=== PATIENT | female | born 1985 | race Caucasian/White ===

== ENCOUNTER 2022-06-16 08:59 | Outpatient (CLI) | payer SELFPAY ==
--- NOTE | 2022-06-16 09:15 | CRLHL7_ITS ---
For Patients: As a result of the Cures Act, medical imaging exams and procedure reports are released immediately into your electronic medical record. You may view this report before your referring provider. If you have questions, please contact your health care provider. INDICATION: First trimester scan, establish dates. TECHNIQUE: Real-time flynn-scale imaging of the pelvis was performed. FINDINGS: Sonographic imaging demonstrates a single living intrauterine gestation. The embryo demonstrates a regular cardiac rate measuring 176 beats per minute. The embryo`s crown-rump length measurement of 3.1 cm corresponds to a gestational age of 10 weeks 0 days with a sonographic due date of 01/12/2023 . Corpus lutein cyst right ovary. Ovaries are unremarkable. IMPRESSION: Normal first trimester OB ultrasound exam. Gestational age calculated at 10 weeks 0 days with a sonographic due date of 01/12/2023. Dictated by Nicole Gallagher MD @ 06/16/2022 11:07:32 AM (Electronically Signed)
== END 2022-06-16 09:00 | disposition home or self-care (01) ==
LOC: US 09:00
PROVIDERS: Visit Provider Advanced Practice Midwife
DX: Z34.91 Encounter for supervision of normal pregnancy, unspecified, first trimester (principal); Z3A.10 10 weeks gestation of pregnancy
CPT/HCPCS: 76801

== ENCOUNTER 2022-06-16 10:18 | Outpatient (CLI) | payer SELFPAY ==
[2022-06-16 14:24] LABS: Hepatitis B Surface Antigen* Negative (Negative)
[2022-06-16 14:28] LABS: HIV 1/2/P24 Combo Screen* Negative (Negative)
[2022-06-16 14:41] LABS: Hepatitis C Virus Antibody* Negative (Negative)
[2022-06-18 06:27] LABS: Rubella Antibody IgG 27.8 IU/mL
[2022-06-18 06:34] LABS: Rapid Plasma Reagin (RPR) Non Reactive (Non Reactive)
== END 2022-06-16 10:19 | disposition home or self-care (01) ==
PROVIDERS: Visit Provider Advanced Practice Midwife
DX: Z34.81 Encounter for supervision of other normal pregnancy, first trimester (principal); Z3A.10 10 weeks gestation of pregnancy
CPT/HCPCS: 86592; 86703; 86762; 86787; 86803; 86850; 86900; 86901; 87086; 87340

== ENCOUNTER 2022-08-27 13:11 | Outpatient (CLI) | payer MEDICAID, SELFPAY | END 2022-08-27 13:12 | disposition home or self-care (01) | LOC: US 13:14 | PROVIDERS: Visit Provider Pediatrics Neonatal-Perinatal Medicine | DX: O09.529 Supervision of elderly multigravida, unspecified trimester (principal); Z3A.20 20 weeks gestation of pregnancy | CPT/HCPCS: 76811 ==

== ENCOUNTER 2022-10-27 09:16 | Outpatient (CLI) | payer OTHER, SELFPAY | END 2022-10-27 09:17 | disposition home or self-care (01) | LOC: NFLDREF 09:18 | PROVIDERS: Visit Provider Advanced Practice Midwife | DX: Z34.93 Encounter for supervision of normal pregnancy, unspecified, third trimester (principal); Z3A.29 29 weeks gestation of pregnancy | CPT/HCPCS: 86592 ==

== ENCOUNTER 2022-10-31 07:49 | Outpatient (CLI) | payer OTHER, SELFPAY | END 2022-10-31 07:50 | disposition home or self-care (01) | LOC: NFLDREF 11-01 07:01 | PROVIDERS: Visit Provider Advanced Practice Midwife | DX: Z34.93 Encounter for supervision of normal pregnancy, unspecified, third trimester (principal) | CPT/HCPCS: 82951; 82952 ==

== ENCOUNTER 2025-01-04 13:41 | Outpatient (CLI) | payer OTHER, SELFPAY ==
--- NOTE | 2025-01-04 14:00 | CRLHL7_ITS ---
For Patients: As a result of the Century Cures Act, medical imaging exams and procedure reports are released immediately into your electronic medical record. You may view this report before your referring provider. If you have questions, please contact your health care provider. OBSTETRICAL ULTRASOUND TRANSABDOMINAL ??? FIRST TRIMESTER, 01/04/2025 CLINICAL INDICATION: Dating and viability. LMP: 10/08/2024 TANYA by LMP: 07/15/2025 Gestational age: 12 weeks 4 days Previous ultrasound: No TECHNIQUE: Real-time flynn-scale imaging of the fetus was performed transabdominal. FINDINGS: CRL: 5.8 cm, 12 weeks 2 days; TANYA 07/17/2025 heart rate: 167 BPM Gestational sac: 5.2 cm, appears within normal limits Yolk sac: Not visualized Right ovary: Within normal limits; 5.4 x 3.4 x 3.7 cm, CL Left ovary: Within normal limits; 2.8 x 2.6 x 4.3 cm IMPRESSION: 1. Single living intrauterine with sonographic gestational age of 12 weeks 2 days and sonographic due date of 07/17/2025. 2. Subchorionic hemorrhage measures 2.8 x 1.0 x 2.2 cm. JAMES MALLOY M.D. Diagnostic Radiologist [email or web address] Transcribed: 5:[address]/Dictated by: James Malloy MD @ 01/04/2025 4:04:00 PM (Electronically Signed)
== END 2025-01-04 13:42 | disposition home or self-care (01) ==
LOC: US 13:41
PROVIDERS: PCP Nurse Practitioner Family; Visit Provider Advanced Practice Midwife
DX: Z34.91 Encounter for supervision of normal pregnancy, unspecified, first trimester (principal); O20.9 Hemorrhage in early pregnancy, unspecified; Z3A.12 12 weeks gestation of pregnancy
CPT/HCPCS: 76801

== ENCOUNTER 2025-01-04 14:58 | Outpatient (CLI) | payer OTHER, SELFPAY ==
--- NOTE | 2025-01-16 14:31 | PC.SOCIAL ---
Addendum entered and electronically signed by Marily Cook LCSW 01/16/25 15:03: SW received call from patient who states that she didn't qualify for MNSure and was not concerned at this time as she was private pay for her son and was not concerned with the bills at that time. Patient had no other questions or concerns at this time. Original Note: [employer]acker Consult: SW was contacted by Jo Ann in [facility] about this patient who does not have insurance and patient called and states that she didn't qualify for insurance through the [facility]. SW states she will reach out to patient to discuss other potential options. DOMENICA called patient and left generic voicemail requesting a call back.
== END 2025-01-04 14:59 | disposition home or self-care (01) ==
PROVIDERS: PCP Nurse Practitioner Family; Visit Provider Advanced Practice Midwife
DX: Z34.81 Encounter for supervision of other normal pregnancy, first trimester (principal)
CPT/HCPCS: 83020; 83021; 85660; 86592; 86703; 86704; 86706; 86762; 86787; 86803; 87086; 87340

== ENCOUNTER 2025-02-01 14:08 | Outpatient (CLI) | payer OTHER, SELFPAY | END 2025-02-01 14:09 | disposition home or self-care (01) | PROVIDERS: PCP Nurse Practitioner Family; Visit Provider Advanced Practice Midwife | DX: O09.522 Supervision of elderly multigravida, second trimester (principal); Z3A.16 16 weeks gestation of pregnancy | CPT/HCPCS: 82565; 82570; 84156; 84450; 84460; 84520 ==

== ENCOUNTER 2025-02-22 10:35 | Outpatient (CLI) | payer SELFPAY | END 2025-02-22 10:36 | disposition home or self-care (01) | LOC: US 10:36 | PROVIDERS: PCP Nurse Practitioner Family; Visit Provider Advanced Practice Midwife | DX: O09.522 Supervision of elderly multigravida, second trimester (principal); Z3A.19 19 weeks gestation of pregnancy | CPT/HCPCS: 76811; 76817 ==

== ENCOUNTER 2025-02-28 12:37 | Outpatient (CLI) | payer SELFPAY | END 2025-02-28 12:38 | disposition home or self-care (01) | LOC: NFLDREF 03-02 02:31 | PROVIDERS: PCP Nurse Practitioner Family; Referring Provider Nurse Practitioner Family; Visit Provider Advanced Practice Midwife | DX: O09.522 Supervision of elderly multigravida, second trimester (principal); Z3A.20 20 weeks gestation of pregnancy | CPT/HCPCS: 82570; 84156 ==

== ENCOUNTER 2025-03-15 10:30 | Outpatient (CLI) | payer OTHER, SELFPAY | END 2025-03-15 10:31 | disposition home or self-care (01) | LOC: US 10:32 | PROVIDERS: PCP Nurse Practitioner Family; Visit Provider Advanced Practice Midwife | DX: Z36.2 Encounter for other antenatal screening follow-up (principal); O44.42 Low lying placenta NOS or without hemorrhage, second trimester; O09.522 Supervision of elderly multigravida, second trimester; Z3A.22 22 weeks gestation of pregnancy | CPT/HCPCS: 76816; 76817 ==

== ENCOUNTER 2025-04-25 14:16 | Outpatient (CLI) | payer SELFPAY ==
--- NOTE | 2025-04-25 14:45 | CRLHL7_ITS ---
For Patients: As a result of the Century Cures Act, medical imaging exams and procedure reports are released immediately into your electronic medical record. You may view this report before your referring provider. If you have questions, please contact your health care provider. OB ULTRASOUND FOLLOW-UP, 04/25/2025 CLINICAL HISTORY: Obesity, low-lying placenta. TECHNIQUE: Real time flynn scale imaging of the fetus was performed. Transabdominal imaging performed. COMPARISON: 01/04/2025. FINDINGS: LMP: 10/08/2024. TANYA by LMP: 07/15/2025. GA: 28 weeks 3 days. Gestation: Single. Cervix: Not visualized. Positioning: Breech, transverse, multiple. Amniotic Fluid: 7.3 cm SDP. Dopplers: Heart Rate: 157 bpm. BIOMETRY BPD: 7.0 cm, 28 weeks 0 days. 23% HC: 26.3 cm, 28 weeks 4 days. 23% AC: 24.2 cm, 28 weeks 3 days. 43% FL: 5.1 cm, 27 weeks 3 days. 13% FL/AC Ratio: 21.27% HC/AC Ratio: 1.09. EFW: 1174 grams, 2 lb 9 oz. Age by this US: 28 weeks 1 day. TANYA by this US: 07/17/2025. Percentile by TANYA: 25% IMPRESSION: 1. Sonographic gestational age 28 weeks 1 day and sonographic due date 07/17/2025. Good correlation with dates. Normal interval growth. 2. Estimated weight 25th percentile. Abdominal circumference 43rd percentile. 3. The anterior placental edge is located 2.4 cm from the internal cervical os. James Crum M.D. Diagnostic Radiologist [email or web address] Transcribed: 9:09 am DW/Dictated by: James Crum MD @ 04/26/2025 7:46:00 AM (Electronically Signed)
== END 2025-04-25 14:17 | disposition home or self-care (01) ==
LOC: US 14:17
PROVIDERS: PCP Nurse Practitioner Family; Visit Provider Advanced Practice Midwife
DX: O44.43 Low lying placenta NOS or without hemorrhage, third trimester (principal); O99.213 Obesity complicating pregnancy, third trimester; Z3A.28 28 weeks gestation of pregnancy
CPT/HCPCS: 76816

== ENCOUNTER 2025-04-28 08:07 | Outpatient (CLI) | payer OTHER, SELFPAY | END 2025-04-28 08:08 | disposition home or self-care (01) | LOC: NFLDREF 05-07 05:49 | PROVIDERS: PCP Nurse Practitioner Family; Referring Provider Nurse Practitioner Family; Visit Provider Advanced Practice Midwife | DX: R73.09 Other abnormal glucose (principal); Z34.93 Encounter for supervision of normal pregnancy, unspecified, third trimester | CPT/HCPCS: 82951; 82952 ==

== ENCOUNTER 2025-05-23 11:15 | Outpatient (CLI) | payer OTHER, SELFPAY ==
--- NOTE | 2025-05-23 11:30 | CRLHL7_ITS ---
For Patients: As a result of the Cures Act, medical imaging exams and procedure reports are released immediately into your electronic medical record. You may view this report before your referring provider. If you have questions, please contact your health care provider. OB ULTRASOUND BIOPHYSICAL PROFILE CLINICAL HISTORY: Gestational diabetes mellitus. TECHNIQUE: Real time flynn scale imaging of the fetus was performed. Transabdominal imaging performed. COMPARISON: 04/25/2025. FINDINGS: LMP: 10/08/2024. TANYA by LMP: 07/15/2025. Gestation: Single. Surgery: None. Cervix: Not visualized. Positioning: Transverse. Amniotic Fluid: 6.7 cm SDP. BIOPHYSICAL PROFILE Gross Body Movements: 2 Tone: 2 Respiratory Activity: 2 Amniotic Fluid SDP: 2 Total Score: 8 Placenta: Technique: TA. Placenta Position: Anterior. Dopplers: Heart Rate: 129 bpm. IMPRESSION: Normal biophysical profile score of 8/8. James Crum M.D. Diagnostic Radiologist [email or web address] Transcribed: 2:34 pm DW/Dictated by: James Crum MD @ 05/23/2025 2:06:00 PM (Electronically Signed)
== END 2025-05-23 11:16 | disposition home or self-care (01) ==
LOC: US 11:16
PROVIDERS: PCP Nurse Practitioner Family; Visit Provider Obstetrics & Gynecology
DX: O24.419 Gestational diabetes mellitus in pregnancy, unspecified control (principal)
CPT/HCPCS: 76819

== ENCOUNTER 2025-05-26 07:57 | Outpatient (CLI) | payer OTHER, SELFPAY ==
--- NOTE | 2025-05-26 08:15 | CRLHL7_ITS ---
For Patients: As a result of the Cures Act, medical imaging exams and procedure reports are released immediately into your electronic medical record. You may view this report before your referring provider. If you have questions, please contact your health care provider. OB ULTRASOUND TANYA by LMP: 07/15/2025. GA: 32 w, 6 d. Single. Comparison: 05/23/2025, 04/25/2025, 03/15/2025. INDICATION: Gestational diabetes mellitus type 2 and advanced maternal age. TECHNIQUE: Real time grayscale imaging of the fetus was performed. Transabdominal. CERVIX: Visualized. TA Measurement: 4.7 cm. POSITIONING: Breech, oblique. AMNIOTIC FLUID: 5.5 cm. SDP (N: greater than 2 x 1 cm) BIOPHYSICAL PROFILE: 2: Gross body movements 2: tone 2: Respiratory activity 2: Amniotic fluid SDP (N: greater than 2 x 1 cm) 03/17: Total score PLACENTA: Technique: Transabdominal. PLACENTA POSITION: Anterior. DOPPLER: heart rate: 139 bpm. BIOMETRY: BPD: 8.1 cm. 32 w, 4 d, 33.5%. HC: 30.4 cm. 33 w, 5 d, 35.6%. AC: 28.4 cm. 32 w, 3 d, 38.4%. FL: 5.8 cm. 30 w, 2 d, <3%. FL/AC ratio: 20.40%. HC/AC ratio: 1.07. EFW: 1873g. Weight: 4 lbs., 2 oz. age by this US: 32 w, 2 d. TANYA by this US: 07/19/2025. Percentile by TANYA: 17.0%. IMPRESSION: 1. Sonographic gestational age 32 weeks 2 days and sonographic due date 07/19/2025. Good correlation with dates. Normal interval growth. 2. Estimated weight 17th percentile. Abdominal circumference 38th percentile. Femur length less than 3rd percentile. 3. Normal biophysical profile score 03/17. James Crum M.D. Diagnostic Radiologist [email or web address] PAMELA/faustina weems/Dictated by: James Crum MD @ 05/28/2025 10:40:00 PM (Electronically Signed)
== END 2025-05-26 07:58 | disposition home or self-care (01) ==
LOC: US 07:57
PROVIDERS: PCP Nurse Practitioner Family; Visit Provider Advanced Practice Midwife
DX: O24.419 Gestational diabetes mellitus in pregnancy, unspecified control (principal); O09.523 Supervision of elderly multigravida, third trimester; Z3A.32 32 weeks gestation of pregnancy
CPT/HCPCS: 76816; 76819

== ENCOUNTER 2025-05-28 17:39 | Outpatient (CLI) | payer OTHER, SELFPAY ==
[2025-05-28 17:49] VITALS: PULSE 87; O2SAT 97
[2025-05-28 18:08] VITALS: RESP 18; TEMP 36.7
[2025-05-28 18:09] VITALS: BP 106/56; PULSE 86
--- NOTE | 2025-05-28 19:22 | PC.OBNST ---
NST Note NST Note Start: 05/28/25 17:42 Freq: ONCE Status: Active Protocol: Document 05/28/25 19:21 JODEE (Rec: 05/28/25 19:22 [facility] [id number]) NST Note 7 Para (# of births) 2 EDC 07/15/25 Gestational Age In 33 Weeks & 1 Days Weeks & Days High Risk Factors Diabetes - Gestational Insulin,Advanced Maternal Age Patient Presented Decreased movement with Complaint(s) of Reactive Yes Appropriate for Yes Gestational Age ZENOBIA Hirsch Date 05/28/25 Reactive Yes Appropriate for Yes Gestational Age ZENOBIA Chandler Date 05/28/25 OB NST charge Yes Complete NST Note Yes via Write Note The provider's electronic signature indicates the NST is reactive/appropriate for gestational age. *Note to provider: If an addendum is required, open the patient's chart and click on the note under the Nurse/Allied Health tab.
== END 2025-05-28 18:58 | disposition home or self-care (01) ==
LOC: OB OUT 17:43 → OB 17:43
PROVIDERS: PCP Nurse Practitioner Family; Visit Provider Obstetrics & Gynecology
DX: O36.8130 Decreased fetal movements, third trimester, not applicable or unspecified (principal); O24.419 Gestational diabetes mellitus in pregnancy, unspecified control; Z3A.33 33 weeks gestation of pregnancy
CPT/HCPCS: 59025; G0463

== ENCOUNTER 2025-06-02 11:46 | Outpatient (CLI) | payer OTHER, SELFPAY ==
--- NOTE | 2025-06-02 12:15 | CRLHL7_ITS ---
For Patients: As a result of the Cures Act, medical imaging exams and procedure reports are released immediately into your electronic medical record. You may view this report before your referring provider. If you have questions, please contact your health care provider. OB ULTRASOUND BIOPHYSICAL PROFILE CLINICAL HISTORY: GDM, advanced maternal age. TECHNIQUE: Real time flynn scale imaging of the fetus was performed. Transabdominal imaging performed. COMPARISON: 05/26/2025, 05/23/2025. FINDINGS: LMP: 10/08/2024. TANYA by LMP/US: 07/15/2025. GA: 33 weeks 6 days. Gestation: Single. Cervix: Not visualized. Position: Transverse. Amniotic Fluid: 5.6 cm SDP. BIOPHYSICAL PROFILE Gross Body Movements: 2 Tone: 2 Respiratory Activity: 2 Amniotic Fluid SDP: 2 Total Score: 8 Placenta: Technique: TA. Placenta Position: Anterior. Dopplers: Heart Rate: 145 bpm. IMPRESSION: Normal biophysical profile 03/17. James Crum M.D. Diagnostic Radiologist [email or web address] Transcribed: 2:41 pm DW/Dictated by: James Crum MD @ 06/02/2025 12:37:00 PM (Electronically Signed)
== END 2025-06-02 11:47 | disposition home or self-care (01) ==
LOC: US 11:47
PROVIDERS: PCP Nurse Practitioner Family; Visit Provider Advanced Practice Midwife
DX: O24.419 Gestational diabetes mellitus in pregnancy, unspecified control (principal); O09.513 Supervision of elderly primigravida, third trimester; Z3A.33 33 weeks gestation of pregnancy
CPT/HCPCS: 76819

== ENCOUNTER 2025-06-09 12:03 | Outpatient (CLI) | payer OTHER, SELFPAY ==
--- NOTE | 2025-06-09 12:15 | CRLHL7_ITS ---
For Patients: As a result of the Cures Act, medical imaging exams and procedure reports are released immediately into your electronic medical record. You may view this report before your referring provider. If you have questions, please contact your health care provider. OB ULTRASOUND BIOPHYSICAL PROFILE CLINICAL HISTORY: GDM. TECHNIQUE: Real time flynn scale imaging of the fetus was performed. Transabdominal imaging performed. FINDINGS: LMP: 10/08/2024. TANYA by LMP/US: 07/15/2025. GA: 34 weeks 6 days. Cervix: Not visualized. Positioning: Vertex. Amniotic fluid: 5.7 cm SDP. BIOPHYSICAL PROFILE Gross Body Movements: 2 Tone: 2 Respiratory Activity: 2 Amniotic Fluid SDP: 2 Total Score: 8 Placenta: Technique: TA. Placenta Position: Anterior. Dopplers: Heart Rate: 155 bpm. IMPRESSION: Normal biophysical profile score of 8/8. James Crum M.D. Diagnostic Radiologist [email or web address] Transcribed: 1:15 pm DW/Dictated by: James Crum MD @ 06/09/2025 12:55:00 PM (Electronically Signed)
== END 2025-06-09 12:04 | disposition home or self-care (01) ==
LOC: US 12:04
PROVIDERS: PCP Nurse Practitioner Family; Visit Provider Advanced Practice Midwife
DX: O24.419 Gestational diabetes mellitus in pregnancy, unspecified control (principal); O09.523 Supervision of elderly multigravida, third trimester; Z3A.34 34 weeks gestation of pregnancy
CPT/HCPCS: 76819

== ENCOUNTER 2025-06-16 09:00 | Outpatient (CLI) | payer OTHER, SELFPAY ==
--- NOTE | 2025-06-16 09:15 | CRLHL7_ITS ---
For Patients: As a result of the Cures Act, medical imaging exams and procedure reports are released immediately into your electronic medical record. You may view this report before your referring provider. If you have questions, please contact your health care provider. OB ULTRASOUND BIOPHYSICAL PROFILE CLINICAL HISTORY: GDM. AMA. TECHNIQUE: Real time flynn scale imaging of the fetus was performed. Transabdominal imaging performed. COMPARISON: 06/09/2025, 06/02/2025. FINDINGS: TANYA by LMP: 07/15/2026. GA: 35 weeks 6 days. Cervix: Not visualized. Positioning: Vertex. Amniotic Fluid: 25.2 cm ROLLY. 8.3 cm SDP. BIOPHYSICAL PROFILE Gross Body Movements: 2 Tone: 2 Respiratory Activity: 2 Amniotic Fluid SDP: 2 Total Score: 8 Placenta: Technique: TA. Placenta Position: Anterior. Dopplers: Heart Rate: 132 bpm. IMPRESSION: 1. Normal biophysical profile score of 8/8. 2. Amniotic fluid single deepest pocket 8.3 cm. ROLLY 25.2 cm. James Crum M.D. Diagnostic Radiologist [email or web address] Transcribed: 11:20 am DW/Dictated by: James Crum MD @ 06/16/2025 9:49:00 AM (Electronically Signed)
== END 2025-06-16 09:01 | disposition home or self-care (01) ==
LOC: US 09:01
PROVIDERS: PCP Nurse Practitioner Family; Visit Provider Advanced Practice Midwife
DX: O24.419 Gestational diabetes mellitus in pregnancy, unspecified control (principal); O09.513 Supervision of elderly primigravida, third trimester; Z36.89 Encounter for other specified antenatal screening; Z3A.35 35 weeks gestation of pregnancy
CPT/HCPCS: 76819

== ENCOUNTER 2025-06-16 10:08 | Outpatient (CLI) | payer OTHER, SELFPAY ==
[2025-06-17 10:47] LABS: Strep B DNA Probe Negative (Negative)
[2025-06-17 11:00] LABS: Strep B Susceptibility Needed? No
== END 2025-06-16 10:09 | disposition home or self-care (01) ==
LOC: NFLDREF 10:08
PROVIDERS: PCP Nurse Practitioner Family; Visit Provider Obstetrics & Gynecology
DX: Z34.93 Encounter for supervision of normal pregnancy, unspecified, third trimester (principal)
CPT/HCPCS: 87081; 87653

== ENCOUNTER 2025-06-23 09:04 | Outpatient (CLI) | payer OTHER, SELFPAY ==
--- NOTE | 2025-06-23 09:15 | CRLHL7_ITS ---
For Patients: As a result of the Cures Act, medical imaging exams and procedure reports are released immediately into your electronic medical record. You may view this report before your referring provider. If you have questions, please contact your health care provider. OBSTETRICAL ULTRASOUND ??? BIOPHYSICAL PROFILE INDICATION: Gestational diabetes and advanced maternal age. CLINICAL HISTORY: TANYA by LMP: 07/15/2025 Gestational Age: 36 weeks 6 days COMPARISON: 06/16/2025, 06/09/2025, 06/02/2025. TECHNIQUE: Real-time flynn-scale transabdominal imaging of the fetus was performed. FINDINGS: Fetus: Single Cervix: Not visualized positioning: Transverse Amniotic Fluid: ROLLY: 21.2 cm 8.7 cm SDP BIOPHYSICAL PROFILE: Gross body movements: 2 tone: 2 Respiratory activity: 2 Amniotic fluid SDP: 2 Total score: 8 Placenta technique: Transabdominal Placenta position: Anterior heart rate: 134 bpm BIOMETRY: BPD: 8.7 cm, 35 weeks 2 days, 21.5% HC: 32.8 cm, 37 weeks 2 days, 33.3% AC: 32.0 cm, 36 weeks 0 days, 36.5% FL: 6.7 cm, 34 weeks 3 days, 3.9% FL/AC Ratio: 20.9% HC/AC ratio: 1.0 EFW: 2721 grams; 6 lbs. 0 oz. age by this ultrasound: 35 weeks 5 days TANYA by this ultrasound: 07/23/2025 Percentile by TANYA: 23.4% IMPRESSION: 1. Normal biophysical profile score of 8/8. 2. Sonographic gestational age is 35 weeks 5 days and sonographic due date is 07/23/2025. Sonographic age is 8 days behind the clinical age. 3. Estimated weight is 23rd percentile. Abdominal circumference is 37th percentile. 4. Amniotic fluid single deepest pocket is 8.7 cm. ROLLY is 21.2 cm. 5. Femur length is 4th percentile. JAMES MALLOY M.D. Diagnostic Radiologist [email or web address] Transcribed: 3:[address]/Dictated by: James Malloy MD @ 06/23/2025 3:23:00 PM (Electronically Signed)
== END 2025-06-23 09:05 | disposition home or self-care (01) ==
LOC: US 09:04
PROVIDERS: PCP Nurse Practitioner Family; Visit Provider Advanced Practice Midwife
DX: O24.419 Gestational diabetes mellitus in pregnancy, unspecified control (principal); O09.513 Supervision of elderly primigravida, third trimester; O36.5930 Maternal care for other known or suspected poor fetal growth, third trimester, not applicable or unspecified; Z3A.36 36 weeks gestation of pregnancy
CPT/HCPCS: 76816; 76819

== ENCOUNTER 2025-06-30 08:59 | Outpatient (CLI) | payer OTHER, SELFPAY ==
--- NOTE | 2025-06-30 09:15 | CRLHL7_ITS ---
For Patients: As a result of the Cures Act, medical imaging exams and procedure reports are released immediately into your electronic medical record. You may view this report before your referring provider. If you have questions, please contact your health care provider. OB ULTRASOUND TANYA by LMP: 07/15/2025. GA: 37 w, 6 d. Single. Comparison: 06/23/2025, 06/16/2025, 06/09/2025. INDICATION: Gestational diabetes mellitus. Advanced maternal age. TECHNIQUE: Real time grayscale imaging of the fetus was performed. Transabdominal. CERVIX: Visualized. TA measurement: 4.6 cm. POSITIONING: Breech. AMNIOTIC FLUID: 18.2 ROLLY. 8.5 cm. SDP (N: greater than 2 x 1 cm) BIOPHYSICAL PROFILE: 2: Gross body movements 2: tone 2: Respiratory activity 2: Amniotic fluid SDP (N: greater than 2 x 1 cm) 8/8: Total score PLACENTA: Technique: Transabdominal. PLACENTA POSITION: Anterior. DOPPLER: heart rate: 142 bpm. IMPRESSION: 1. Biophysical profile score 8/8. 2. Amniotic fluid single deepest pocket 8.5 cm. ROLLY 18.2 cm. James Crum M.D. Diagnostic Radiologist [email or web address] PAMELA/faustina weems/Dictated by: James Crum MD @ 06/30/2025 10:36:00 AM (Electronically Signed)
== END 2025-06-30 09:00 | disposition home or self-care (01) ==
LOC: US 09:00
PROVIDERS: PCP Nurse Practitioner Family; Visit Provider Advanced Practice Midwife
DX: O24.419 Gestational diabetes mellitus in pregnancy, unspecified control (principal); O09.513 Supervision of elderly primigravida, third trimester; Z3A.37 37 weeks gestation of pregnancy
CPT/HCPCS: 76819

== ENCOUNTER 2025-07-05 05:33 | Inpatient (IN) | payer OTHER, SELFPAY ==
[2025-07-05] VITALS (25 sets, daily range): BP systolic 99–126; BP diastolic 55–78; PULSE 64–85; RESP 16–18; TEMP 36.4–37.2; O2SAT 97–99; BMI 35.1
[2025-07-05 06:33] LABS: Hematocrit* 35.0 % (33.0-51.0); Hemoglobin* 11.4 gm/dL (12.0-16.0); Immature Granulocytes Abs Auto 0.02 K/uL (0.00-0.30); Immature Granulocytes Pct Auto 0.2 %; Mean Corpuscular HGB Conc 33 gm/dL (32-36); Mean Corpuscular Hemoglobin 27 pg (26-34); Mean Corpuscular Volume 82 fL (80-100); RDW Coefficient of Variation % 14.3 % (11.5-15.5); Red Blood Count* 4.28 m/uL (4.00-5.20); White Blood Count* 8.90 K/uL (4.50-11.00)
[2025-07-05 06:34] LABS: Lymphocytes Absolute Auto 1.20 K/uL (0.90-2.90); Slide Review Reflex No
[2025-07-05] MEDS: LACTATED RINGERS 1000 ML 1,000 ML 1200 ML IV (06:38)
[2025-07-05 06:46] LABS: Glucose* 88 mg/dL (60-115)
--- NOTE | 2025-07-05 07:01 | W.PM.LDBA ---
Subjective History of Present Illness Time Seen by Provider: 07:12 Date Seen: 07/05/25 Narrative: Patient is being admitted to Labor and Delivery for primary section. She is a 39 year old at 38 4/7 weeks gestation. Her full history and physical was dictated by Dr. ONTIVEROS on 06/23/25. Please see this for details. Doing well, took 13 units of NPH last night. Otherwise, wonders if I could be able to remove a skin tag on her left hip. Specific Issues/Plans Partner: Marcelo? H&P:? [place] on 06/23/2025 #Malpresentation at 36 6/7 weeks -US: Transverse back up -Prefers delivery, would also like to pursue surgical sterilization with bilateral salpingectomy- scheduling form sent and requested either 07/04/25, 07/05/25 at 38 3-4/7 due to poorly controlled GDMA2 # GDM A2 (medication management) Nutrition consult? Consult with provider for Diabetic Education? 05/11: 16U NPH @ HS 05/18: 18U NPH @ HS --> 05/26 increased to 20 U NPH qHS and add Lispro 1U evening meal --> 24U NPH QSH and Lispro 4u dinner on 06/02 --> 25U NPH qHS and Lispro 5U dinner on 06/09--> 27U NPH qHS, Lispro 5U dinner, +2U lunch-->06/23: NPH 26 units pm, Lispro 6 units with dinner and 5 units with lunch --> 06/30/25 continue NPH 26 units at night, increase lispro with dinner to 8 units, continue 6 units of Lispro with lunch Twice weekly testing starting at 32 weeks? Growth US every 4 weeks starting at 28 weeks.? Recommend delivery:? Well controlled: 39 0/7-39 6/7?? Poorly controlled: 37 0/7-38 6/7 weeks?? Failed in-hospital attempt at control: 36 0/7-36 6/7? # Mild polyhydramnios-Resolved 06/16 - SDP 8.3 mc, ROLLY 25.2 cm 06/23/25: SDP: 8.7cm, ROLLY: 21.2cm 06/30/25: SDP: 8.5cm, ROLLY: 18.2cm # Advanced maternal age, 40 years old or greater at delivery? Recommend Genetic Screening Test-low risk 20-week Level II detailed ultrasound with [facility]?-completed 02/22, see below ? #? Anxiety/Depression/ ADHD Sertraline 200mg daily PHQ 12, CATRACHO 16 at NOB referral to therapy/med management- decided to wait on this, doing better mentally at 16 week visit # Hx of shoulder dystocia with first delivery (6# 2oz infant) ? #Hx of Preeclampsia with first delivery baseline labs WNL, ratio 0.27, 24 hr urine-0.11 (completed at 20 weeks) # Placenta low lying 1.2cm from os at 22 wks, RESOLVED Partial previa at Level II Anatomy US, now low lying [facility] recommended f/u US for growth, anatomy and placental location at 28 weeks: EFW 25% with placenta 2.4 cm from cervix Imaging:??? Level II US (02/22/2025): Impression: 1. Camargo at 19w4d gestational age. 2. No anomalies commonly detected by ultrasound were identified in the detailed anatomic survey within the limits of ultrasound, however some views were suboptimal, as described above. 3. Growth parameters and estimated weight were consistent with gestational age predicted by assigned TANYA. 4. The amniotic fluid volume appeared normal. 5. On transvaginal imaging the cervix appeared long and closed. 6. An anterior placenta previa is noted with the edge of the cervix at the level of the internal os 7. Small fibroid noted. Recommendation: Presence of a placenta previa. Repeat ultrasound is recommended at 28 weeks to re-assess placental location. We reviewed that if she has a persistent previa and remains asymptomatic, delivery is recommended between 36-37 weeks. Also due to AMA > 40, we recommend a growth assessment at 32 weeks and weekly BPP starting at 36 weeks. Follow-up is recommended in 3-4 weeks with [facility] to reassess anatomy that was suboptimally seen today.? [facility] Follow-up US (03/15/25): 1. Camargo intrauterine at 22w 4d gestational age. 2. None of the anomalies commonly detected by ultrasound were evident in the anatomic survey described above. 3. Growth parameters and estimated weight were consistent with appropriate for gestational age pattern of growth. 4. The amniotic fluid volume appeared normal. 5. The placenta is anterior and low lying. 1.2cm from os Recommend repeat US at 28 weeks to re-evaluate growth, anatomy and placental location given AMA > 40 and low lying placenta on today's US. Additionally, due to AMA > 40, we recommend a growth assessment at 32-34 weeks and weekly BPP starting at 36 weeks. Follow-up Growth US (03/25/2025): IMPRESSION: 1. Sonographic gestational age 28 weeks 1 day and sonographic due date 07/17/2025. Good correlation with dates. Normal interval growth. 2. Estimated weight 25th percentile. Abdominal circumference 43rd percentile. 3. The anterior placental edge is located 2.4 cm from the internal cervical os. 05/26/25: Sonographic gestational age 32 weeks 2 days and sonographic due date 07/19/2025. Good correlation with dates. Normal interval growth. Estimated weight 17th percentile. Abdominal circumference 38th percentile. Femur length less than 3rd percentile. Normal biophysical profile score 03/17. 06/23/2025: Transverse presentation, single deepest pocket of amniotic fluid: 8.7 cm, ROLLY: 21.2 cm. BPP 03/17. EFW: 2721 g, 23rd percentile. AC: 36 percentile. Vaccinations:?? COVID: declined? Flu: 05/10/2025? Tdap: 05/10/2025? RSV: 05/26/25? 32 week mental health: 05/26/25 PHQ9- 12 GAD7-16 Last pap:? [Only high-risk abnormal pap results in problem list]? OB - Problem Based A/P Additional Plan (1) Gestational diabetes mellitus, class A2: Status: Acute (2) AMA (advanced maternal age) primigravida 35+: Status: Acute (3) Anxiety and depression: Status: Acute Plan Proceed with delivery as planned, confirmed that she does want to proceed with bilateral salpingectomy. Informed consent reviewed and signed by patient. Will try to remove skin tag if feasible after completion of procedure. OB Result Labs Labs: Hgb:11.4mg/dL OB Exam Physical Exam Vital signs: Temp Pulse Resp BP Pulse Ox 98.6 F 85 16 126/77 98 07/05/25 05:51 07/05/25 05:51 07/05/25 05:51 07/05/25 05:51 07/05/25 05:52 Detailed Labor and Delivery Exam Patient Gravid: yes Fetus (Single) Heart Rate Baseline: 130 Monitor Accelerations: Present Monitor Decelerations: None [facility] Variability: Moderate (6-25)
[2025-07-05] MEDS: LACTATED RINGERS 1000 ML 1,000 ML 125 ML IV ×2 (07:20→12:54)
--- NOTE | 2025-07-05 07:45 | P.ANES_ITS ---
Anesthesia Charges Start Date/Time Anesthesia Start Date: 07/05/25 Anesthesia Start Time: 07:20 Stop Date/Time Anesthesia Stop Date: 07/05/25 Anesthesia Stop Time: 08:51 Coding CPT Codes CPT Codes: ANESTH CS DELIVERY - 53283 ([id number]) P3 - PATIENT W/SEVERE SYS DISEASE, QK - SELECTOR PACKER 2-4 CNCRNT ANES PROC, QX - TYPING TEACHER SVC W/ MD MED DIRECTION
--- NOTE | 2025-07-05 07:45 | W.ANESCHARGE ---
Anesthesia Charges Start Date/Time Anesthesia Start Date: 07/05/25 Anesthesia Start Time: 07:20 Stop Date/Time Anesthesia Stop Date: 07/05/25 Anesthesia Stop Time: 08:51 Coding CPT Codes CPT Codes: ANESTH CS DELIVERY - 07006 ([id number]) P3 - PATIENT W/SEVERE SYS DISEASE, QK - NAIL MILL WORKER 2-4 CNCRNT ANES PROC, QX - SUCTION DRUM DRIER OPERATOR SVC W/ MD MED DIRECTION
[2025-07-05] MEDS: miSOPROStoL 800 MCG/4 TABLET PR (07:54)
--- NOTE | 2025-07-05 08:50 | P.OBPRC_ITS ---
OB Delivery Proc Additional Procedures Tubal Ligation at the time of : Yes Procedure Time Seen by Provider: 07:47 Date of procedure: 07/05/25 Pre-op diagnosis: IUP at 38 4/7 weeks malpresentation, footling breech GDMA2 Family Planning Left hips skin tag Post-op diagnosis: same (PPH due to uterine atony) Procedure Done: Global Will [facility] bill your pro fee for this procedure?: Yes Blood Loss Measurement Type: QBL (9187) Bakri Used: No IV fluids (mL): 1,500 Urine Output (mL): 300 Urine Output Comment: Clear at end of surgery Surgeon: Iveth Hewitt MD Anesthesia Type: Spinal Findings: FINDINGS: Live-born female infant, footling breech presentation, Apgars 8 and 9 at 1 and 5 minutes respectively. weight 5 lb 15 oz. Right ovary with a small simple cyst of about 2-3 cm in largest dimension. Bilateral small paratubal cysts-otherwise grossly normal. Subserosal fibroid of about 2cm in the anterior uterine wall. Procedure Name: Primary low transverse section, bilateral salpingectomy, left hip skin tag removal. Procedure Description: PROCEDURE: After obtaining informed consent, the patient was taken to the operating room where spinal anesthesia was obtained and found to be adequate. She was prepared and draped in the normal sterile fashion in the dorsal supine position with a leftward tilt. A Pfannenstiel skin incision was made with a scalpel about 2 cm above symphysis pubic bone, 12-14 cm in length. This incision was carried down to the underlying layer of fascia with the Bovie and scalpel. The fascia was incised in the midline and the incision extended laterally. The rectus muscles were then in the midline. Peritoneum entered bluntly. The Shan O retractor was then placed into the incision. The lower uterine segment was then incised in a transverse fashion with the scalpel. Upon entry into the uterus, clear amniotic fluid was noted. The uterine incision was extended cephalo caudally with blunt finger fractionation. le gs were guided towards incision and with fundal pressure fetus was delivered up to scapulas, hips were then grasped with a lap and gently assisted delivery the rest of the body, essentially fetus was delivered with only fundal pressure. One nuchal cord noted that easily reduced with head delivery. The cord was doubly clamped and cut after at least 30 seconds of delayed cord clamping and the infant was handed off the field to [facility] for evaluation. The placenta was delivered spontaneously with umbilical cord traction and fundal massage. The uterus was cleared of all clots and debris. Uterine atony identified and managed with 30 units IV Oxytocin and 800mcg of rectal Cytotec. The uterus was exteriorized and the uterine incision was reapproximated in a running locking fashion with a 0 Vicryl suture. A 2nd layer of the same suture was used to imbricate in horizontal fashion. Verbal confirmation was again obtained to proceed with salpingectomy. Starting on the right side, fallopian tube was grasped with 2 Richar clamps. Starting on the fimbrial end of right fallopian tube the mesosalpinx was sequentially clamped, coagulated and cut utilizing LigaSure handheld bipolar device. Dissection continued until cornual end. Hemostasis secured and fallopian tube sent to pathology. Same procedure completed on the left side. Hemostasis again secured. Uterus was replaced into abdomen and resection sites were again evaluated and continued hemostasis noted. The gutters were inspected and cleared of blood clot. All instruments and retractors were removed. Peritoneal layer closed in a continuous fashion utilizing Vicryl 3-0. The subfascial tissues/muscles were thoroughly inspected and hemostasis secured. Lakisha was utilized at this point for management of small oozing vessels. Hemostasis secured. The fascia was reapproximated in a running fashion with a looped 0 Vicryl suture. The subcutaneous tissues were copiously irrigated, inspected and hemostasis secured. The subcutaneous fat layer was reapproximated with running sutures of 3-0 Vicryl. The skin was closed in a subcuticular fashion with 4-0 Monocryl. LiquiBand and dressing were applied. Left hip skin tag area was then exposed, cleansed with Betadine swabs, picked up with pickups and utilizing Metzenbaum scissors skin tag removed. Base of skin treated with Silver Nitrate stick- hemostasis secured. The patient tolerated the procedure well. Sponge, lap, needle, and instrument counts were reported as correct x2. The patient was taken to the recovery room, awake, and in stable condition. She did receive 2 grams of IV Ancef preoperatively. Complications: None Pathology: specimen obtained, sent to pathology (Placenta, bilateral fallopian tubes ) Surgery Debrief Performed: Yes Condition: stable Disposition: floor
--- NOTE | 2025-07-05 09:00 | W.PM.NB ---
Nerve Block Nerve Block Time Seen by Provider: 08:45 Date Seen: 07/05/25 Type of block requested by surgeon for post-operative analgesia: TAP Side: bilateral Time out performed: Yes Verification of patient name: Yes Verification of date of : Yes Site marking: site marked Name of person performing procedure: Med Continuous monitoring Was continuous monitoring of O2 sat, B/P, cardiac sonographer, recorded every 15 minutes?: Yes Procedure Checklist: sterile prep, needles and gloves Ultrasound guided. Images saved: Yes Medications given in 5ml increments after negative aspiration: Marcaine %: 0.25 mL: 30 Needle gauge: 20 and Exparel mL: 10 Patient tolerated procedure well: Yes Additional comments: Needle noted between internal oblique and transversus abdominus. Local spread visualized Block Charges Block Charge (with Pro Fee): TAP Bilateral Use of Ultrasound Machine for Block: Yes- US Guidance/pain block
--- NOTE | 2025-07-05 09:04 | P.ANES_ITS ---
Anesthesia Charges Start Date/Time Anesthesia Start Date: 07/05/25 Anesthesia Start Time: 07:20 Stop Date/Time Anesthesia Stop Date: 07/05/25 Anesthesia Stop Time: 08:51 Coding CPT Codes CPT Codes: ANESTH CS DELIVERY - 85666 ([id number]) P3 - PATIENT W/SEVERE SYS DISEASE, QK - TECHNICAL SALES SUPPORT SPECIALIST 2-4 CNCRNT ANES PROC
--- NOTE | 2025-07-05 09:04 | W.ANESCHARGE ---
Anesthesia Charges Start Date/Time Anesthesia Start Date: 07/05/25 Anesthesia Start Time: 07:20 Stop Date/Time Anesthesia Stop Date: 07/05/25 Anesthesia Stop Time: 08:51 Coding CPT Codes CPT Codes: ANESTH CS DELIVERY - 91257 ([id number]) P3 - PATIENT W/SEVERE SYS DISEASE, QK - CHAIN PERSON 2-4 CNCRNT ANES PROC
--- NOTE | 2025-07-05 09:04 | W.PM.NB ---
Nerve Block Nerve Block Time Seen by Provider: 08:45 Date Seen: 07/05/25 Type of block requested by surgeon for post-operative analgesia: TAP Side: bilateral Time out performed: Yes Verification of patient name: Yes Verification of date of : Yes Site marking: site marked Name of person performing procedure: Elijah Gunter Continuous monitoring Was continuous monitoring of O2 sat, B/P, phototypesetting equipment monitor, recorded every 15 minutes?: Yes Procedure Checklist: sterile prep, needles and gloves Ultrasound guided. Images saved: Yes Medications given in 5ml increments after negative aspiration: Marcaine %: 0.25 mL: 30 Needle gauge: 20 and Exparel mL: 10 Needle gauge: 20 Patient tolerated procedure well: Yes Block Charges Block Charge (with Pro Fee): TAP Bilateral Use of Ultrasound Machine for Block: Yes- US Guidance/pain block
[2025-07-05] MEDS: DOCUSATE SODIUM 100 MG CAPSULE PO (12:58)
[2025-07-06 00:32] VITALS: BP 106/70; PULSE 79; RESP 18; TEMP 36.5; O2SAT 96
[2025-07-06 03:25] VITALS: BP 105/67; PULSE 78; RESP 20; O2SAT 98
[2025-07-06] MEDS: ACETAMINOPHEN 500 MG TABLET 1000 MG PO ×2 (06:08→21:29)
[2025-07-06 06:34] LABS: Hemoglobin* 9.8 gm/dL (12.0-16.0)
[2025-07-06 08:28] VITALS: BP 106/69; PULSE 65; RESP 16; TEMP 36.6; O2SAT 100
[2025-07-06] MEDS: DOCUSATE SODIUM 100 MG CAPSULE PO (08:39)
--- NOTE | 2025-07-06 10:48 | PM.OBPNVD1 ---
OB - PN:Subj Subjective Date Seen: 07/06/25 Interval history: Radha is a 39-year-old G7 now P3 woman who is status post repeat with bilateral salpingectomy and removal of skin tag of left hip at 38 weeks, 4 days gestation on 07/05/2025. was complicated by hemorrhage due to uterine atony with a QBL of 1032 mL. Her was complicated by/notable for: #Transverse, back up presentation in the 36th week of . for this indication. # GDM A2, on NPH # Polyhydramnios, resolved # AMA # Anxiety / depression / ADHD, treated with sertraline 200 mg daily # History of preeclampsia with first delivery # Low lying placenta at 22 weeks, resolved Narrative: Today, on postoperative day 1, she is feeling well. Pain is well controlled without narcotic pain medicines. She is pumping and bottle feeding expressed breast milk. She is tolerating a regular diet and passing flatus. She is able to ambulate. She is urinating without difficulty after removal of her catheter. She denies any heavy bleeding. OB - PN: Obj Exam Physical Exam: Vital signs: Temp Pulse Resp BP Pulse Ox O2 Del Method 97.8 F 65 16 106/69 100 Room Air 07/06/25 08:28 07/06/25 08:28 07/06/25 08:28 07/06/25 08:28 07/06/25 08:28 07/06/25 08:28 Narrative: General: Pleasant, no acute distress Heart: Regular rate and rhythm, no murmur or gallop Lungs: Clear to auscultation bilaterally Abdomen: Soft, mildly tender to palpation, fundus well below umbilicus, normoactive bowel sounds. Incision clean, dry, and intact, with some bruising along the superior aspect. Lower extremities: No edema or erythema OB - PN: Obj Data Labs Labs: Laboratory Results - last 24 hr 07/06/25 06:22 Hgb 9.8 L Her hemoglobin today is 9.8, down from 11.4 yesterday. 2 hour glucose tolerance test was passed this morning OB - PN: A/P Delivery Assessment and Plan (1) Gestational diabetes mellitus, class A2: Status: Acute Assessment and Plan: Resolved on testing this morning. (2) S/P primary low transverse : Problem details: With bilateral salpingectomy on 07/05/2025 Status: Acute (3) Anemia associated with acute blood loss: Status: Acute Assessment and Plan: Begin ferrous sulfate 325 mg every other day. Plan Otherwise routine cares. Anticipate discharge on postoperative day 2 or 3 Plan day: 1 Plan: routine care
[2025-07-06 16:04] VITALS: BP 121/71; PULSE 76; RESP 16; TEMP 36.8; O2SAT 97
[2025-07-06] MEDS: FERROUS SULFATE 325 MG TABLET PO (21:29)
[2025-07-07] MEDS: IBUPROFEN 600 MG TABLET PO ×2 (00:54→10:27)
[2025-07-07 01:01] VITALS: BP 118/80; PULSE 78; RESP 16; TEMP 36.4
[2025-07-07] MEDS: ACETAMINOPHEN 500 MG TABLET 1000 MG PO (03:50)
[2025-07-07 05:54] LABS: Glucose 2 Hour 124 mg/dl (70-155)
--- NOTE | 2025-07-07 07:52 | PM.OBDSVD1 ---
DS: Providers Provider Date Seen: 07/07/25 Date of admission: 07/05/25 05:33 Primary care physician: Marily De Oliveira APRN, KNOT TIER Admitting Clinician: Jaymie Hewitt MD Attending Physician on discharge: Stefnay Bojorquez APRN, CNM DS: Diagnosis Discharge Diagnosis (1) Anemia associated with acute blood loss: Status: Acute (2) S/P primary low transverse : Status: Acute Problem details: With bilateral salpingectomy on 07/05/2025 (3) Gestational diabetes mellitus, class A2: Status: Acute (4) Anxiety and depression: Status: Acute (5) ADHD: Status: Acute Exam Narrative: Exam Narrative: GENERAL APPEARANCE:? normal affect, alert, no distress MOOD:? appropriate CHEST:? clear to auscultation HEART:? regular rate and rhythm ABDOMEN:? soft, non-tender the uterine fundus is At Umbilicus, Midline and is appropriate for the stage of recovery. EXTREMITIES:? normal and trace edema INCISION: Healing well, no surrounding erythema, abnormal induration or discharge Const: Vital Signs, click to edit/add: Vital Signs - 24 hr 07/06/25 08:28 07/06/25 16:04 07/07/25 01:01 Temperature 97.8 F 98.2 F 97.5 F L Pulse Rate [Pulse Oximeter] 65 76 78 Respiratory Rate 16 16 16 Blood Pressure [Ri ght Arm] 106/69 121/71 118/80 Pulse Oximetry 100 97 Oxygen Delivery Me thod Room Air Room Air Room Air Documenting provider has reviewed patient's vital signs: yes OB - DS: Summary Hospital Course Hospital Course: Radha is a 39 y.o. G 7 P 3043 who was admitted to [facility] for primary c/s for breech with bilateral salpingectomy. ?She had a section that was uncomplicated. The patient feels well. ?The pain is well controlled with current medications. ?She has no new complaints. ?She is pumping and bottle feeding and reports things are going well. the patient has done well.? Vitals have been stable.? She has remained afebrile.? Has a good appetite, is tolerating a general diet. ?She is voiding without difficulty.? She is passing gas and has had a bowel movement.? She is ambulating and denies any dizziness.? Has small amount of rubra lochia. Problems: none Discharge home with baby.? Follow up in 2 weeks and 6 weeks.? , may see if needed? Hgb 9.8. Iron supplement ordered orally every other day? GDM, passed 2 hour gct For pain control of perineum, breast and pelvic pain, take 600 mg Ibuprofen every 6 hours as needed by mouth or 1000 mg acetaminophen (Tylenol) every 6 hours by mouth as needed. You can alternate these so you are taking something every 3 hours as needed. A heating pad can also be used for your abdomen or breasts. You may also take docusate sodium up to twice daily to soften your stools and help to prevent constipation. You may wean off of it when your stools return to normal.? Peripartum Data delivery method: Primary C/S; Non-Labored Procedures: Procedures Operation Date: 07/05/25 07:15 Actual Procedure Side Surgeon p Primary low transverse Section, Bilateral Salpingectomy, skin tag removal Jaymie Hewitt MD complications: none [place] Gender: Female Discharge Plan: Home Status at Discharge Functional status at discharge: independent ambulation Overall status at discharge: patient is progressing back to baseline Time Spent with Patient Time attestation: Total time spent providing and/or coordinating discharge services: Time spent: Less than 30 minutes Discharge Plan Discharge Disposition: Home, Self-Care Date of Admission: 07/05/25 05:33 Attending Provider on Discharge: Stefany Bojorquez Primary Care Provider: Marily De Oliveira Condition: Stable Anticipated Discharge Date/Time: 07/07/25 12:00 Discharge Medications: New ferrous sulfate 325 mg (65 mg iron) Tablet 325 mg PO Q48H Qty: 60 0RF ibuprofen 600 mg Tablet 600 mg PO Q6H PRN (Reason: Pain) Qty: 60 0RF oxycodone 5 mg Tablet 5 - 10 mg PO Q4H PRN (Reason: Pain) Qty: 15 0RF acetaminophen 500 mg Tablet 1,000 mg PO Q6H PRN (Reason: Pain) Qty: 0 0RF Continued prenat.vits,gene,nqj-cera-oxzxg Tablet 1 tab PO QDAY magnesium 250 mg tablet 250 mg PO QDAY cholecalciferol (vitamin D3) 50 mcg (2,000 unit) capsule 50 mcg PO QDAY docusate sodium [Colace] 100 mg capsule 100 mg PO QDAY Qty: 90 0RF sertraline 100 mg tablet 200 mg PO QDAY 90 Days Qty: 180 2RF Discontinued (DME) insulin syringe-needle U-100 [Sure Comfort Insulin Syringe] 1 mL 30 gauge x 5/16 syringe See Rx Instructions .ROUTE .MEDSUPPLY Qty: 100 3RF Rx Instructions: As directed alcohol swabs [Alcohol Pads] Pads, Medicated 2 pad topical DAILY Qty: 100 1RF aspirin 81 mg tablet 81 mg PO QDAY Humulin N NPH U-100 Insulin 100 unit/mL suspension 26 unit subcut .hs insulin lispro 100 unit/mL solution 8 unit subcut QDAY Patient Comments: once per day per patient on 06/02/2025 Rx Instructions: 8 units at dinner (DME) lancets Misc See Rx Instructions .MEDSUPPLY Qty: 100 3RF Rx Instructions: Test blood sugar 4 times daily. (DME) Test Strips Misc See Rx Instructions .MEDSUPPLY Qty: 100 3RF Rx Instructions: Test blood sugar 4 times daily. (DME) Blood Glucose Meter Misc See Rx Instructions .MEDSUPPLY Qty: 1 0RF Rx Instructions: Dispense 1 meter per insurance coverage. Patient will be checking Blood sugars QID for the remainder of her Discharge Orders: Discharge Order (Routine); Ordered 07/07/25 Ordered By: Stefany Bojorquez Patient Education: Bupivacaine Liposome (By injection), OB Over the Counter Medication Information, OB Vaginal/Breast Feeding Additional Instructions: Discharge instructions were reviewed with the patient including signs and symptoms of infection and home going medications Lifting Restrictions: 20 pounds for 6 weeks No not submerge incision under water X 2 weeks? Nothing vaginally for 6 weeks: no tampons or intercourse Do not drive while taking narcotic pain medication(s) Off Work or School for 6 weeks 2-week visit: incision check, discuss feeding concerns, review control options and screen for anxiety/depression. 6-week visit for an annual exam. consultation services are available to all mothers and babies for the first year after delivery.? To make an appointment, please call [phone]. Activity Level: Activity as Tolerated Discharge Diet: Regular Follow Up [facility] Info Instructions
[2025-07-07 08:17] VITALS: BP 111/65; PULSE 93; RESP 16; TEMP 36.7; O2SAT 98
[2025-07-07 08:31] LABS: Glucose Fasting Check 93 mg/dl (60-115)
== END 2025-07-07 11:25 | disposition home or self-care (01) | DRG 784 ==
PROVIDERS: Admitting Provider Obstetrics & Gynecology; PCP Nurse Practitioner Family; Visit Provider Obstetrics & Gynecology
PROC: 10D00Z1 Extraction of Products of Conception, Low, Open Approach (ICD-10-PCS; CPT 59514; principal; 2025-07-05 07:15)
DX: O32.8XX0 Maternal care for other malpresentation of fetus, not applicable or unspecified (principal); D62 Acute posthemorrhagic anemia; O72.1 Other immediate postpartum hemorrhage; O24.424 Gestational diabetes mellitus in childbirth, insulin controlled; L91.8 Other hypertrophic disorders of the skin; O90.81 Anemia of the puerperium; G89.18 Other acute postprocedural pain; O99.344 Other mental disorders complicating childbirth; F41.9 Anxiety disorder, unspecified; F32.A Depression, unspecified; F90.9 Attention-deficit hyperactivity disorder, unspecified type; O34.13 Maternal care for benign tumor of corpus uteri, third trimester; Z30.2 Encounter for sterilization; D25.2 Subserosal leiomyoma of uterus; Z3A.38 38 weeks gestation of pregnancy; Z37.0 Single live birth
CPT/HCPCS: 01961; 36415; 64488; 76942; 82947; 82950; 82962; 85018; 85025; 86592; 86850; 86900; 86901; A4314; A9270; J0665; J0666; J0690; J1100; J1885; J2274; J2371; J2405; J2590; J7120